=== PATIENT | female | born 1985 | race African-American/Black ===

== ENCOUNTER 2019-09-21 15:38 | Emergency (ER) | payer MEDICAID ==
[~2019-09-21] VITALS: Ht 162.6 cm; Wt 83.2 kg
[2019-09-21 15:50] VITALS: BP 142/74
[2019-09-21] MEDS ORDERED: NACL 0.9% 1,000 ML IV SCH (16:08)
[2019-09-21] MEDS ORDERED: ONDANSETRON 4 MG/2 ML VIAL IVP ONE (16:10)
[2019-09-21] MEDS ORDERED: ALUMINUM HYD/MAG/SIMETHICONE 30 ML, DICYCLOMINE HCL LIQUID 20 MG, LIDOCAINE VISCOUS 2% ... PO ONE ×3 (16:10)
--- NOTE | 2019-09-21 16:14 | NUR ---
BIB C/O HEAD ACHE, ABDOMINAL PAIN, RT ANKLE SWELLING X 1 MONTH, VAGINAL AND RECTAL BLEEDING PER 1 DAY. PER PT SHE HAD BEEN TAKING 1000 MG TYLENOL QID X1 MONTH FOR PAIN MANAGEMENT W/O RELIEF. VSS. ER TO SEE PT.
[2019-09-21] MEDS ORDERED: LIDOCAINE VISCOUS 2% 20 ML UDC ONE (16:21)
[2019-09-21] MEDS ORDERED: ALUMINUM HYD/MAG/SIMETHICONE 30 ML UDC ONE (16:21)
[2019-09-21] MEDS ORDERED: DICYCLOMINE HCL LIQUID 10 MG/5 ML UDC ONE (16:22)
[2019-09-21 16:44] LABS: BASOPHILS % (AUTO) 0.3 % (0.0-2.0); EOSINOPHILS # (AUTO) 0.1 K/uL (0-0.4); EOSINOPHILS % (AUTO) 1.3 % (0.0-4.0); HEMATOCRIT 36.5 % (36-48); LYMPHOCYTES # (AUTO) 2.2 K/uL (2.5-16.5); LYMPHOCYTES % (AUTO) 40.7 % (20.5-51.1); MEAN CORPUSCULAR HEMOGLOBIN 31 pg (27-31); MEAN CORPUSCULAR HGB CONC 33 g/dL (33-37); MONOCYTES # (AUTO) 0.4 K/uL (0.8-1.0); NEUTROPHILS # (AUTO) 2.6 K/uL (1.8-7.7); NEUTROPHILS % (AUTO) 49.7 % (42.2-75.2); PLATELET COUNT (AUTO) 214 K/uL (140-450); RED CELL DISTRIBUTION WIDTH 13.3 % (11.6-13.7); WHITE BLOOD COUNT (AUTO) 5.3 K/uL (4.8-10.8)
[2019-09-21 16:55] LABS: ANION GAP 15.3 (8-16); CARBON DIOXIDE 25.1 mmol/L (21-32); CREATININE 1.1 mg/dL (0.6-1.3); POTASSIUM 3.4 mmol/L (3.5-5.1)
[2019-09-21 17:00] LABS: TOTAL BILIRUBIN 0.3 mg/dL (0.0-1.0)
[2019-09-21] MEDS ORDERED: MORPHINE SULFATE 4 MG/ML SYR IVP ONE (17:30)
--- NOTE | 2019-09-21 17:43 | NUR ---
MEDICATED ORDERED FOR PAIN.
--- NOTE | 2019-09-21 18:14 | NUR ---
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
[2019-09-21 20:13] VITALS: BP 121/81
--- NOTE | 2019-09-21 20:13 | NUR ---
Patient discharged with v/s stable. Written and verbal after care instructions given and explained. Patient alert, oriented and verbalized understanding of instructions. Ambulatory with steady gait. All questions addressed prior to discharge. ID band removed. Patient advised to follow up with PMD. Rx of NORCO, OMENPRAZOLE, AND FLUCONAZOLE given. Patient educated on indication of medication including possible reaction and side effects. Opportunity to ask questions provided and answered.
== END 2019-09-21 20:13 | disposition home or self-care (01) ==
LOC: MED 15:38
DX: K29.70 Gastritis, unspecified, without bleeding (principal); E86.0 Dehydration; M25.571 Pain in right ankle and joints of right foot; G89.29 Other chronic pain; Z98.890 Other specified postprocedural states; Z88.8 Allergy status to other drugs, medicaments and biological substances
CPT/HCPCS: 36415; 76856; 80053; 81002; 81025; 82150; 83690; 85025; 87210; 93976; 96361; 96374; 96375; 99284; J2270; J2405; J7030; Q0092